=== PATIENT | female | born 1975 | race Caucasian/White ===

== ENCOUNTER 2017-06-29 09:44 | Inpatient (IN) | payer SELFPAY ==
--- NOTE | 2017-06-29 09:54 | EDPHY ---
H & P Stated Complaint: dry needling yesterday l side with sob within an hour Time Seen by Provider: 06/29/17 09:48 HPI/ROS: CHIEF COMPLAINT: Left upper back pain, shortness of breath HISTORY OF PRESENT ILLNESS: This patient is a 41 y/o female arriving with her significant other complaining of left upper back pain and shortness of breath. She had dry needling appointment with her chiropractor yesterday. She noted more left sided back pain than usual at that time. Two hours later while grocery shopping, onset of severe left sided back pain. Associated with left sided chest pain and coughing. The discomfort is worse when standing or if lying on her left side. She feels best lying down. She currently feels short of breath and the pain is worse with deep inspiration. She was not able to sleep well last night because of pain. She denies recent illness. No headache, vomiting, diarrhea, urinary complaints, or other associated symptoms. REVIEW OF SYSTEMS: A 10 point review of systems was performed and is negative with the exception of the elements mentioned in the history of present illness. - Personal History LMP (Females 10-55): 22-28 Days Ago Current Tetanus/Diphtheria Vaccine: Yes - Medical/Surgical History PMH: 1. Eleven pinched nerves. Hx Asthma: No Hx Chronic Respiratory Disease: No Hx Diabetes: No Hx Cardiac Disease: No Hx Renal Disease: No Hx Cirrhosis: No Hx Alcoholism: No Hx HIV/AIDS: No Hx Splenectomy or Spleen Trauma: No Other PMH: pinched nerve - Social History Smoking Status: Current some day smoker Additional Social History: Recently moved to [place]. Significant other at bedside. Occasional tobacco use. - Physical Exam Exam: General Appearance: Alert, appears in pain Eyes: Pupils equal and round, no conjunctival pallor or injection ENT, Mouth: Mucous membranes moist Neck: Normal inspection Respiratory: Decreased breath sounds on the left Cardiovascular: Regular rate and rhythm Gastrointestinal: Abdomen is soft and non-tender Neurological: A&O, nonfocal, slow and steady gait Skin: Warm and dry, no rash Extremities: Nontender, no pedal edema Psychiatric: Mood and affect normal Constitutional: Initial Vital Signs Temperature (C) 36.5 C 06/29/17 09:45 Heart Rate 79 06/29/17 09:45 Respiratory Rate 24 H 06/29/17 09:45 Blood Pressure 119/79 06/29/17 09:45 O2 Sat (%) 99 06/29/17 09:45 O2 Delivery Mode Room Air Allergies/Adverse Reactions: No Known Allergies Allergy (Unverified 06/29/17 09:44) Home Medications: Medication Instructions Recorded Herbals/Supplements -Info Only 1 ea PO DAILY 06/29/17 Multivitamins [Multivitamin (*)] 1 each PO DAILY 06/29/17 Medical Decision Making - Diagnostics EKG Interpretation: EKG interpreted by me reveals normal sinus rhythm, rate 73, poor R-wave progression, no ST or T segment changes. Impression: Borderline EKG Imaging Results: Imaging Impressions Chest X-Ray 06/29/17 09:48 Impression: There is an approximate 25-30% left apical pneumothorax. Findings were discussed with YENIFER HARGROVE MD at 10:21 AM, on 06/29/2017. Chest X-Ray 06/29/17 10:44 Impression: Interval left chest tube placement with a small residual left pneumothorax. Imaging: I viewed and interpreted images myself ED Course/Re-evaluation: 41 y/o female presents with left-sided back and chest pain and shortness of breath secondary to dry-needling in that area yesterday afternoon. Exam reveals diminished breath sounds on the left. Consistent with left-sided pneumothorax. Plan for chest x-ray. Plan for labs including CBC, BMP. IV established. Administered 4mg IV Zofran and 4mg IV morphine for pain relief. 10:17 Chest x-ray shows left-sided pneumothorax. Plan to consult with general surgery. 10:19 Reassessed patient, discussed imaging results. 10:[address] Mora, radiologist, regarding the patient's pneumothorax. 10:[address] Llamas, general surgeon. She will evaluate the patient. 10:26 Dr. Llamas at bedside. Heimlich valve placed. Repeat chest x-ray reveals a small pneumothorax. Will admit for obs. Differential Diagnosis: Differential diagnosis includes though it is not limited to pneumonia, pneumothorax, pulmonary embolism, aortic dissection, pericarditis, acute coronary syndrome. - Data Points Laboratory Results: Laboratory Results 06/29/17 10:00 06/29/17 10:00 06/29/17 06/29/17 10:00 10:00 WBC 5.91 10^3/uL 10^3/uL (3.80-9.50) RBC 4.56 10^6/uL 10^6/uL (4.18-5.33) Hgb 14.5 g/dL g/dL (12.6-16.3) Hct 39.9 % % (38.0-47.0) MCV 87.5 fL fL (81.5-99.8) MCH 31.8 pg pg (27.9-34.1) MCHC 36.3 g/dL g/dL (32.4-36.7) RDW 12.1 % % (11.5-15.2) Plt Count 227 10^3/uL 10^3/uL (150-400) MPV 10.4 fL fL (8.7-11.7) Neut % (Auto) 55.7 % % (39.3-74.2) Lymph % (Auto) 32.0 % % (15.0-45.0) [place] % (Auto) 9.1 % % (4.5-13.0) Eos % (Auto) 2.2 % % (0.6-7.6) Baso % (Auto) 0.8 % % (0.3-1.7) Nucleat RBC Rel Count 0.3 % H % (0.0-0.2) Absolute Neuts (auto) 3.29 10^3/uL 10^3/uL (1.70-6.50) Absolute Lymphs (auto) 1.89 10^3/uL 10^3/uL (1.00-3.00) Absolute Monos (auto) 0.54 10^3/uL 10^3/uL (0.30-0.80) Absolute Eos (auto) 0.13 10^3/uL 10^3/uL (0.03-0.40) Absolute Basos (auto) 0.05 10^3/uL 10^3/uL (0.02-0.10) Absolute Nucleated RBC 0.02 10^3/uL H 10^3/uL (0-0.01) Immature Gran % 0.2 % % (0.0-1.1) Immature Gran # 0.01 10^3/uL 10^3/uL (0.00-0.10) Sodium 137 mEq/L mEq/L (134-144) Potassium 4.2 mEq/L mEq/L (3.5-5.2) Chloride 105 mEq/L mEq/L (97-110) Carbon Dioxide 21 mEq/l L mEq/l (22-31) Anion Gap 11 mEq/L mEq/L (8-16) BUN 17 mg/dL mg/dL (7-23) Creatinine 0.8 mg/dL mg/dL (0.6-1.0) Estimated GFR > 60 Glucose 87 mg/dL mg/dL (70-100) Calcium 9.6 mg/dL mg/dL (8.5-10.4) Medications Given: Hydrocodone Bitart/Acetaminophen ([place] 5/325) 1 tab PO Q4H PRN PRN Reason: Pain, Moderate Stop: 07/09/17 10:59 Last Admin: 06/29/17 11:01 Dose: 1 tab Discontinued Medications Morphine Sulfate (Morphine) 4 mg IVP EDNOW ONE Stop: 06/29/17 10:02 Last Admin: 06/29/17 10:12 Dose: 4 mg Ondansetron HCl (Zofran) 4 mg IVP EDNOW ONE Stop: 06/29/17 10:02 Last Admin: 06/29/17 10:11 Dose: 4 mg Departure - Departure Disposition: [facility] Inpatient Acute Clinical Impression: Pneumothorax, left Condition: Good Report Scribed for: Yenifer Hargrove Report Scribed by: Deysi Mclaughlin Date of Report: 06/29/17 Time of Report: 09:54 Physician Review and Approval Statement: 06/29/17 09:54 Portions of this note were transcribed by a spanish medical interpreter. I personally performed a history, physical exam, medical decision making, and confirmed accuracy of information the transcribed note.
--- NOTE | 2017-06-29 09:57 | CPEKG ---
Heart Rate: 73 RR Interval: 822 P-R Interval: 164 QRSD Interval: 86 QT Interval: 388 QTC Interval: 428 P [place]: 79 QRS [place]: 35 T Wave [place]: 48 EKG Severity - BORDERLINE ECG - EKG Impression: SINUS RHYTHM EKG Impression: BORDERLINE R WAVE PROGRESSION, ANTERIOR LEADS Electronically Signed By: Yenifer Hargrove 29-Jun-2017 15:21:14
[2017-06-29] MEDS ORDERED: ONDANSETRON 4 MG/2 ML VIAL IVP ONE (10:01)
[2017-06-29 10:08] LABS: % IMMATURE GRANULYOCYTES 0.2 % (0.0-1.1); ABSOLUTE IMMATURE GRANULOCYTES 0.01 10^3/uL (0.00-0.10); ABSOLUTE NRBC COUNT 0.02 10^3/uL (0-0.01); ADD DIFF? NO; ADD MORPH? NO; ADD SCAN? NO; ATYPICAL LYMPHOCYTE FLAG 10 (0-99); FRAGMENT RBC FLAG 0 (0-99); HEMATOCRIT 39.9 % (38.0-47.0); HEMOGLOBIN 14.5 g/dL (12.6-16.3); LEFT SHIFT FLG 0 (0-99); LIPEMIA HEMOLYSIS FLAG 90 (0-99); MEAN CELL HEMOGLOBIN 31.8 pg (27.9-34.1); MEAN CELL HEMOGLOBIN CONCENTR. 36.3 g/dL (32.4-36.7); MEAN CELL VOLUME 87.5 fL (81.5-99.8); MEAN PLATELET VOLUME 10.4 fL (8.7-11.7); NRBC-AUTO% 0.3 % (0.0-0.2); PLATELET CLUMPS FLAG 0 (0-99); PLATELET COUNT 227 10^3/uL (150-400); RED BLOOD CELL COUNT 4.56 10^6/uL (4.18-5.33); RED CELL DISTRIBUTION WIDTH 12.1 % (11.5-15.2)
[2017-06-29 10:26] LABS: ANION GAP 11 mEq/L (8-16); CALCIUM 9.6 mg/dL (8.5-10.4); CARBON DIOXIDE 21 mEq/l (22-31); CHLORIDE 105 mEq/L (97-110); CREATININE 0.8 mg/dL (0.6-1.0); GLOMERULAR FILTRATION RATE > 60; GLUCOSE 87 mg/dL (70-100); POTASSIUM 4.2 mEq/L (3.5-5.2); SODIUM 137 mEq/L (134-144)
[2017-06-29] MEDS ORDERED: ACETAMINOPHEN 325 MG TAB PO PRN (10:50)
[2017-06-29] MEDS ORDERED: ONDANSETRON 4 MG/2 ML VIAL IVP PRN (10:51)
[2017-06-29] MEDS: HYDROCODONE/APAP 5/325 TAB PO PRN ×2 (11:01→16:40)
--- NOTE | 2017-06-29 11:17 | GHP ---
[f rep st] HISTORY AND PHYSICAL DATE OF ADMISSION: 06/29/2017 CHIEF COMPLAINT: Left pneumothorax. HISTORY OF PRESENT ILLNESS: The patient is a 41-year-old who is undergoing dry needling treatment for several pinched nerves in her neck. She had increasing chest pain and presented to the ER, and a pneumothorax was diagnosed on chest x- ray. She believes she felt when it happened, and when she was at [employer], she felt it getting worse. Nothing has made the pain better. PAST MEDICAL HISTORY: Pinched nerves. PAST SURGICAL HISTORY: Surgery for 2 ectopic pregnancies, as well surgery as for what sounds to be cervical dysplasia. SOCIAL HISTORY: She does drink alcohol several times a week. She uses tobacco products only when smoking. She works as a front end developer designer. REVIEW OF SYSTEMS: Ten-point review of systems otherwise negative. PHYSICAL EXAM: VITALS: Reviewed. GENERAL: Pleasant, well-nourished, well- groomed woman, sitting up on exam table gurney, appears uncomfortable. HEENT: Normocephalic. No gross hearing deficits. Mucous membranes moist. Pupils equal and round. No scleral icterus. LUNGS: Decreased breath sounds, left upper lung field, otherwise clear to auscultation bilaterally, without increased work of breathing. CARDIAC: Regular rate. ABDOMEN: Bowel sounds present, soft, nontender, nondistended. NEURO: Grossly intact. PSYCH: Mood and affect normal. SKIN: Warm and dry. IMPRESSION AND PLAN: The patient is a 41-year-old with a left pneumothorax. I will place a chest tube. The risks and benefits were discussed. She had her questions answered to her satisfaction. /[id number]/MODL MTDD
[2017-06-29] MEDS: KETOROLAC 15 MG/1 ML SDV IVP SCH ×2 (13:06→18:18)
[2017-06-30] MEDS: KETOROLAC 15 MG/1 ML SDV IVP SCH ×4 (00:12→17:22)
--- NOTE | 2017-06-30 08:45 | GPN ---
[f rep st] PROCEDURE NOTE DATE OF PROCEDURE: 06/29/2017 ANESTHESIA: None. PREOPERATIVE DIAGNOSIS: Left pneumothorax. POSTOPERATIVE DIAGNOSIS: Left pneumothorax. NAME OF PROCEDURE: Left tube thoracostomy. SPECIMENS: None. ESTIMATED BLOOD LOSS: 1 cc. FINDINGS: Gush of air. INDICATIONS: The patient is a 41-year-old, who had dry needling and had a pneumothorax. DESCRIPTION OF PROCEDURE: The patient was in the ER. A time-out was performed. Consent was obtaine d. The chest was prepped and draped in the usual fashion. I infiltrated the area above the 3rd rib on her left chest with 1% lidocaine. I inserted the Pneumocath with a large gush of air. I threaded the catheter. I connected this to a Pleur-evac. It was sutured in place. Dressing was applied. S he had pain immediately after the procedure which resolved very shortly. Chest x-ray showed near res olution of the pneumothorax. /[id number]/MODL
--- NOTE | 2017-06-30 12:47 | SOAPPROG ---
SOAP Progress Note Assessment/Plan: Assessment: HD # 2 for L pneumo from dry needling. Much improvement but still residual and difficulty with pain control. Likely remove tube tomorrow. Regular diet Cough IS deep breath S: Still pain with deep inspiration Chest tube to suction. Good breath sounds Plan: 06/30/17 12:45 Objective: Vital Signs Temp Pulse Resp BP Pulse Ox 36.9 C 61 18 103/62 96 06/30/17 07:39 06/30/17 07:39 06/30/17 07:39 06/30/17 07:39 06/30/17 07:39 06/29/17 06/30/17 07/01/17 05:59 05:59 05:59 Intake Total 680 Balance 680 ICD10 Worksheet Patient Problems: Problems Problem Status Onset Pneumothorax, left Acute
[2017-06-30] MEDS: OXYCODONE/APAP 5/325 TAB PO PRN (14:04)
[2017-06-30] MEDS ORDERED: ALBUTEROL 3 ML DEYVIAL IH PRN (19:59)
[2017-06-30] MEDS ORDERED: LORazepam 2 MG/ML INJ IVP ONE (21:00)
[2017-06-30 23:24] VITALS: RESP 18
[2017-07-01] MEDS: KETOROLAC 15 MG/1 ML SDV IVP SCH ×3 (00:38→12:22)
[2017-07-01] MEDS: OXYCODONE/APAP 5/325 TAB PO PRN ×2 (03:05→07:30)
--- NOTE | 2017-07-01 09:43 | SOAPPROG ---
SOAP Progress Note Assessment/Plan: Assessment: HD # 3 for L pneumo from dry needling. Rapid response called last night due to abrupt desaturation which resolved with Ativan. Chest x ray without pneumothorax Removed tube this am and repeat cxr around noon. If no pneumothorax, can dc home Regular diet Cough IS deep breath S: Still pain with deep inspiration Chest tube to suction. removed tube easily Good breath sounds, clear bilaterally Plan: 06/30/17 12:45 07/01/17 09:41 Objective: Vital Signs Temp Pulse Resp BP Pulse Ox 36.9 C 69 18 99/63 L 95 07/01/17 08:26 07/01/17 08:26 07/01/17 08:26 07/01/17 08:26 07/01/17 09:19 06/30/17 07/01/17 07/02/17 05:59 05:59 05:59 Intake Total 680 1700 Output Total 0.5 Balance 680 1699.5 ICD10 Worksheet Patient Problems: Problems Problem Status Onset Pneumothorax, left Acute
[2017-07-01 12:18] VITALS: BP 114/68; PULSE 58; TEMP 98.4; O2SAT 98
--- NOTE | 2017-07-01 17:22 | ASDISCHSUM ---
Discharge Information Plan Status:Home with No Needs Medically Cleared to Leave: Discharge Date:07/01/2017 02:22 PM CM D/C Disposition:Home, Routine, Self-Care ADT D/C Disposition:Home, Routine, Self-Care Projected Discharge Date:07/01/2017 02:22 PM Transportation at D/C: Discharge Delay Reason: Follow-Up Date:07/01/2017 02:22 PM Discharge Slot: Final Diagnosis: Placement Information Patient Contact Information Contact Name:ANDREW Relationship:Other Address:[address] [place] [address] Work Phone: City:[place] Alternate Phone: [facility]/Zip Code:[place] [address] Email: Financial Information Financial Class:Self-Pay Primary Plan Desc:SELF PAY Primary Plan Number: Secondary Plan Desc: Secondary Plan Number: Assessment Information Intervention Information
--- NOTE | 2017-07-05 13:49 | GDS ---
[f rep st] DISCHARGE SUMMARY ADMITTING DIAGNOSIS: Left pneumothorax. SECONDARY DIAGNOSIS: None. REASON FOR ADMISSION: The patient is a 41-year-old woman who underwent dry needling and developed le ft upper back pain and shortness of breath. She was found to have a pneumothorax and was admitted fo r pain control, intervention with thoracostomy tube and observation. HOSPITAL COURSE: Upon admission to the emergency room, she had a chest x-ray performed, which showed a 30% left pneumothorax. A Pneumocath tube was placed by Dr. Bertha Llamas, and a followup chest x-ra y showed a small residual pneumothorax. On hospital day #2, a followup chest x-ray showed no residua l pneumothorax. By hospital day #3, her chest tube was removed, and a repeat x-ray showed no residua l pneumothorax. Also of note, a rapid response was called on the night of 06/30/2017 for abrupt desa turation, which resolved with Ativan. At the time of discharge, she was not requiring supplemental o xygen. Her pain was well controlled. She is tolerating regular diet and ambulating independently. DISCHARGE CONDITION: Being discharged home in stable condition. DISCHARGE MEDICATIONS: She was instructed to resume home medications. Please see EMR for further de tail. DISCHARGE INSTRUCTIONS AND FOLLOWUP: She will follow up in 10 days. She will get a chest x-ray janes r to her appointment. She is instructed to avoid heavy activity or flying or going to high altitudes for 2 weeks. She will call our office for any worsening symptoms, questions or concerns. /[id number]/MODL
== END 2017-07-01 14:22 | disposition home or self-care (01) | DRG 201 ==
LOC: OBSVTOIN 11:08 → F1N 13:19
PROVIDERS: ADMIT Surgery; ATTEND Surgery
PROC: 0B9P30Z Drainage of Left Pleura with Drainage Device, Percutaneous Approach (ICD-10-PCS; principal; 2017-06-29)
DX: J95.811 Postprocedural pneumothorax (principal); Z72.0 Tobacco use; G58.9 Mononeuropathy, unspecified
CPT/HCPCS: 96374; J1885; J2060; J2405

== ENCOUNTER 2017-07-03 16:19 | Emergency (ER) | payer SELFPAY ==
[2017-07-03 16:23] VITALS: RESP 20; O2SAT 100
--- NOTE | 2017-07-03 16:53 | EDPHY ---
H & P Time Seen by Provider: 07/03/17 16:36 HPI/ROS: CHIEF COMPLAINT: Left-sided chest pain and shortness of breath HISTORY OF PRESENT ILLNESS: 41-year-old woman had dry needling and subsequently was admitted on June 29 with a 30% left pneumothorax. Her chest tube was pulled on July 01 and she was at the [employer] today around noon she started having a burning sensation in the center of her chest radiating to the left associated with some difficulty breathing and shortness of breath which is identical to her pneumothorax symptoms. Symptoms moderate currently. Little bit worse and she does take a deep breath. REVIEW OF SYSTEMS: Eye: No symptoms ENT: A little bit of a hoarse voice Cardiac: HPI Pulmonary: HPI Abdomen: No abdominal pain Musculoskeletal: No leg swelling Skin: no rash Neuro: no headache Constitutional: no fever : No symptoms A comprehensive 10 point review of systems is otherwise negative aside from elements mentioned in the history of present illness. PAST MEDICAL HISTORY: Ectopic x2 and left pneumothorax Family history: Negative for venous thromboembolism. Social history: Nonsmoker, no recent travel or immobilization General Appearance: Alert and conversant, cooperative. Eyes: No scleral icterus. ENT, Mouth: Normal mucous membranes. No angioedema. Respiratory: Decreased breath sounds on the left but no crepitus. Cardiovascular: Regular rate and rhythm. Gastrointestinal: Abdomen is soft and non tender. Neurological: Alert and oriented x3. Normally conversant. Ambulatory. Skin: Warm and dry, no rashes. No urticaria. Musculoskeletal: No peripheral edema and no joint swelling. No calf tenderness. Psychiatric: Not agitated. Emergency Department course/MDM: Chest x-ray ordered. 1715: X-ray results reviewed with the patient. Symptomatic treatment advised. I think it is unlikely that she would have pulmonary embolism or pneumonia or ACS. More likely to be inflammatory or other sequela of recent chest tube. Smoking Status: Current some day smoker Constitutional: Initial Vital Signs Temperature (C) 37.1 C 07/03/17 16:21 Heart Rate 76 07/03/17 16:21 Respiratory Rate 20 07/03/17 16:21 Blood Pressure 151/96 H 07/03/17 16:21 O2 Sat (%) 100 07/03/17 16:21 O2 Delivery Mode Room Air Allergies/Adverse Reactions: No Known Allergies Allergy (Verified 07/03/17 16:23) Home Medications: Medication Instructions Recorded Herbals/Supplements -Info Only 1 ea PO DAILY 06/29/17 Multivitamins [Multivitamin (*)] 1 each PO DAILY 06/29/17 Medical Decision Making - Diagnostics EKG Interpretation: 12-lead EKG interpreted by me; official reading is in trace master. My interpretation is sinus rhythm, borderline R-wave progression, rate 84, artifact Imaging Results: Imaging Impressions Chest X-Ray 07/03/17 16:51 Impression: 1. No visible pneumothorax. 2. Persistent minimal peribronchial thickening, which can be seen with airways disease/bronchitis. Departure - Departure Disposition: Home, Routine, Self-Care Clinical Impression: Chest pain Condition: Good Instructions: Chest Pain (ED) Referrals: Bertha Llamas MD [Medical Doctor] - 2-3 days, call for appt. (Wednesday if still symptomatic.)
--- NOTE | 2017-07-03 17:32 | CPEKG ---
Heart Rate: 84 RR Interval: 714 P-R Interval: 168 QRSD Interval: 102 QT Interval: 380 QTC Interval: 450 P [place]: 68 QRS [place]: 23 T Wave [place]: -14 EKG Severity - BORDERLINE ECG - EKG Impression: SINUS RHYTHM EKG Impression: BORDERLINE R WAVE PROGRESSION, ANTERIOR LEADS Electronically Signed By: Andrae Mccormack 03-Jul-2017 17:37:09
[2017-07-03 17:51] VITALS: BP 148/90; PULSE 74; TEMP 97.9
== END 2017-07-03 17:51 | disposition home or self-care (01) ==
DX: R07.9 Chest pain, unspecified (principal); F17.200 Nicotine dependence, unspecified, uncomplicated